=== PATIENT | male | born 1940 | race Caucasian/White ===

== ENCOUNTER 2020-04-01 08:06 | Day surgery (SDC) | payer MEDICARE, SELFPAY ==
[2020-03-25 17:44] VITALS: BMI 28.4
--- NOTE | 2020-03-31 14:15 | MHC.SHP ---
Pre-Procedural Eval Section B Chief Complaint: Complex Regional Pain Syn. 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 No changes have occurred unless specified.
--- NOTE | 2020-04-01 07:27 | P.OP_ITS ---
Operative Note Operative Note Date of Service: 04/01/20 Narrative: The patient came today into the operating room for implantation of spinal cord stimulator for the treatment of CRPS of b/l lower extremities.. Preoperatively patient received 2 grams of Cefasoline approximately 30 minutes_b efore procedure. After obtaining informed consent patient was brought to the operating room, HE was positioned prone on operating table, [employer] monitors were applied and patient was deeply sedated. Time-out was performed delineating correct site, side, the nature of the procedure, patient's allergy, preoperative antibiotic. All operating room staff was participating in OR time-out procedure. Patient's entire back was prepped with ChloraPrep twice and draped with full body drape including Ioban film. Sterilely draped C-arm was brought over operating field and sqare picture of L1, L2, L3 vertebrae as were demonstrated on the screen. THE PROJECTION OF L3-L4 SPINAL PROCESSES TO THE SKIN WERE INFILTRATED WITH LIDOCAINE 2% MIXED WITH BUPIVACAINE 0.5%. Six CM LONG VERTICAL INCISION using 15 blade scalpel WAS PERFORMED IN STRICT MIDLINE VERTICAL FASHION. THOROUGH HEMOSTASIS WAS PERFORMED using electrocautery. Thorough tissue dissections was performed until prevertebral fascia was freed from overlying tissues. Attention FIRST was concentrated on the RIGHT L2-L3 epidural interspace. The location of the projection of the right pedicle center of the L3 vertebra was found on the prevertebral fascia using C-arm. This location was injected with mixture of lidocaine 2% and Marcaine 0.5% 5 cc in approximate direction of needle advancement.. After that 10 cm 14 gauge - introducer epidural needle was inserted through the fascia and advanced toward L2-L3 epidural interspace. The advancement of the needle was performed on anterior posterior and lateral views. Guitar wire and loss of resistance technique were used to locate epidural space. When guitar wire was spread in the epidural fashion, epidural lead was inserted through the skin and it was advanced to T12 position POSTERIOR EPIDURAL SPACE slightly left TO THE MIDLINE. After that location of the projection of the LEFT pedicle center of the L3 vertebra was found -using C-arm. This location was injected with mixture of lidocaine 2% and Marcaine 0.5% 5 cc.. . 10 cm 14 gauge curved introducer epidural needle was inserted through the fascia and advanced to L3-L4 epidural interspace. The advancement of the needle was performed on anterior posterior and lateral views. Guitar wire and loss of resistance technique were used to locate epidural space. When guitar wire was spread in the epidural fashion, epidural lead was inserted through the needle and advanced to the T12 POSTERIOR EPIDURAL SPACE SLIGHTLY left TO THE MIDLINE. THE LOCATION OF BOTH LEADS WAS VERIFIED ON ANTERIOR POSTERIOR AND LATERAL VIEWS. After that the patient was awaken and the epidual leads were stimulated. The patient reportse stimulation corresponding to the legs pain. After satisfactory position of the leads were established the needles were withdrawn, the stylette wires were removed from the epidural leads. The anchoring devices were dislodged on the leads and advanced to the level of fascia. The anchoring devices were advanced along the epidural leads and dislodged and epidural leads at the level of prevertebral fascia. They were sutured to prevertebral fascia with 2 separate etibone sutures per each anchoring device. After that the wound was irrigated with copious amount of Vancomycin containing normal saline and packed with Vancomycin soaked 4 x 4. After that attention was concentrated on the left upper buttock of the patient where he wanted battery to be implanted. 6 cm long horizontal incision was performed 3 cm below the TOP right iliac crest. Thorough hemostasis was obtained. the pocket for the battery of spinal cord stimulator was formed under the skin. The wound was irrigated with copious amount of Vancomycin contained normal saline. Tunneling device was used to connect the 2 wounds and epidural leads were dislodged into side wound. They were connected to the battery and locked with a locking screwdriver device. After that the anchoring sutures Tycron were applied in the most superior medial and most superior lateral corners of the wound. After that they were connected to the anchoring holes on the body of the battery, the epidural leads were gathered behind the body of the battery, the battery and the leads were inserted into the pocket wound and after that the anchoring 2 sutures were tied. The wounds were irrigated again with Vancomycin containing normal saline, thorough hemostasis was checked, and after that the wounds were closed using 0 Vicryl. After that the skin edges wore approximated using 2 0 Vicryl, mariya were applied to the wounds at the level of the skin. sterile dressings were applied to the staple lines. Two large tapes were applied to hold the dressing to the patient's skin. Abdominal binder to wear was provided to the patient. At this moment patient was awaken and transferred to the bed. He was recovering uneventfully in PACU.
--- NOTE | 2020-04-01 08:25 | HO.ANESPROP2 ---
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[place], old Peripheral neuropathy Surgical History Surgical History H/O inguinal hernia repair Hx of CABG Social History Social History Smoking Status: Never smoker Use of substances other than those prescribed or required for medical reasons: No Advance Directives: Yes Advance Directives Information Provided: Yes Advance Directives on File: Yes Advance Directives Date on File: 12/15/19 Meds Allergies Allergy/AdvReac Type Severity Reaction Status Date / Time metronidazole [From Flagyl] AdvReac Intermediate Diarrhea Verified 03/25/20 17:56 Home Medications Medication Instructions Recorded Confirmed Type alprazolam [Xanax] 0.25 mg PO BID PRN 03/25/20 03/25/20 History aspirin 81 mg PO DAILY 03/25/20 03/25/20 History atorvastatin 40 mg PO DAILY 03/25/20 03/25/20 History cholecalciferol (vitamin D3) 25 mcg PO DAILY 03/25/20 03/25/20 History [Vitamin D3] lisinopril 5 mg PO DAILY 03/25/20 03/25/20 History metoprolol tartrate 25 mg PO BID 03/25/20 03/25/20 History mirtazapine 15 mg PO DAILY 03/25/20 03/25/20 History pregabalin [Lyrica] 100 mg PO TID 03/25/20 03/25/20 History vitamin A-vitamin C-vit E-min 1 tab PO DAILY 03/25/20 03/25/20 History [Eye-Vites] Exam Exam Date and Time: April 01, 2020 0825 Height,Weight and Vital Signs: Height 5 ft 8 in Weight 84.822 kg Airway Mallampati Class: II TM Dist: >3cm Neck ROM: Full
[2020-04-01 08:28] VITALS: BP 114/64; PULSE 72; RESP 18; TEMP 36.1; O2SAT 98
--- NOTE | 2020-04-01 08:30 | FL_ITS ---
EXAMINATION: XR FLUOROSCOPY WITH IMAGES CLINICAL INFORMATION: Spinal implant COMPARISON: None. TECHNIQUE: Fluoroscopy performed by Dr. Carson Goodrich Fluoroscopy time: 1.8 minutes DAP: 16.3 mGycm2 Images: 4 FINDINGS: Four images demonstrate placement of a spinal stimulator catheter with its tip at the mid T12 vertebral body. FL/FL guidance in OR IMPRESSION: Fluoroscopy and spot films provided during spinal stimulation catheter placement.
[2020-04-01] MEDS: Lactated Ringers 1,000 ML 100 ML IVCONT (08:42)
[2020-04-01] MEDS: ceFAZolin Sodium/Dextrose,Iso 2 GM/50 ML PIGGYBACK IV (08:43)
[2020-04-01 11:07] VITALS: BP 132/62; PULSE 79; RESP 16; TEMP 36.8; O2SAT 100
--- NOTE | 2020-04-01 11:10 | PM.OP ---
Brief Operative Note Date of Service: 04/01/20 Pre-op diagnosis: CRPS of bilateral lower extremities Post-op diagnosis: same Implants: implantation of SCS [employer] Surgeon: Carson Goodrich MD Anesthesia: MAC Estimated blood loss (mL): 40 Pathology: none sent Condition: stable Disposition: PACU
[2020-04-01 11:23] VITALS: BP 116/73; PULSE 69; RESP 16; O2SAT 100
[2020-04-01 11:38] VITALS: BP 124/64; PULSE 73; RESP 18; O2SAT 96
[2020-04-01 11:53] VITALS: BP 129/89; PULSE 75; RESP 18; O2SAT 97
[2020-04-01 12:07] VITALS: BP 124/63; PULSE 68; RESP 16; O2SAT 97
--- NOTE | 2020-04-01 12:35 | HO.POSTANES ---
Post Anesthesia Evaluation Post Anesthesia Evaluation Vital Signs: Vital Signs Temp Pulse Resp BP Pulse Ox 04/01/20 12:07 98.2 F 68 16 124/63 97 04/01/20 11:53 75 18 129/89 97 04/01/20 11:38 73 18 124/64 96 04/01/20 11:23 69 16 116/73 100 04/01/20 11:07 98.2 F 79 16 132/62 100 04/01/20 08:28 97.0 F 72 18 114/64 98 Anesthesia: Monitored Mental Status: Awake Pain Control: Satisfactory Nausea/Vomiting: None Hydration: Adequate Anesthesia-Related Issues: No Anes. Related Issues
== END 2020-04-01 12:57 | disposition home or self-care (01) ==
PROVIDERS: PCP Internal Medicine; Visit Provider Anesthesiology
PROC: (CPT 63685; principal; 2020-04-01 09:00)
DX: G90.523 Complex regional pain syndrome I of lower limb, bilateral (principal); M48.062 Spinal stenosis, lumbar region with neurogenic claudication; G89.4 Chronic pain syndrome; I73.9 Peripheral vascular disease, unspecified; Z87.891 Personal history of nicotine dependence
CPT/HCPCS: 63685; 63650 ×2; C1778; C1820; J0690; J3010; J3370

== ENCOUNTER → 2020-04-06 11:25 | Outpatient (BNVA) | payer MEDICARE, SELFPAY | PROVIDERS: PCP Internal Medicine; Visit Provider Anesthesiology | DX: M48.061 Spinal stenosis, lumbar region without neurogenic claudication (principal); I73.9 Peripheral vascular disease, unspecified; I99.8 Other disorder of circulatory system | CPT/HCPCS: 99212 ==

== ENCOUNTER → 2020-04-14 11:25 | Outpatient (BNVA) | payer MEDICARE, SELFPAY | PROVIDERS: PCP Internal Medicine; Referring Provider Internal Medicine; Visit Provider Anesthesiology | DX: M48.061 Spinal stenosis, lumbar region without neurogenic claudication (principal); I73.9 Peripheral vascular disease, unspecified; I99.8 Other disorder of circulatory system | CPT/HCPCS: 99212 ==

== ENCOUNTER → 2020-06-22 15:23 | Outpatient (BNVA) | payer MEDICARE, SELFPAY | PROVIDERS: PCP Internal Medicine; Visit Provider Anesthesiology | DX: M48.061 Spinal stenosis, lumbar region without neurogenic claudication (principal); I73.9 Peripheral vascular disease, unspecified; I99.8 Other disorder of circulatory system; Z79.899 Other long term (current) drug therapy | CPT/HCPCS: Q3014 ==